=== PATIENT | female | born 1960 | race Caucasian/White ===

== ENCOUNTER 2018-01-14 20:40 | Emergency (ER) | payer OTHER, SELFPAY ==
--- NOTE | 2018-01-14 20:40 | DT_ITS ---
This patient was seen during an EMR downtime January 11, 2018 - January 18, 2018. This patient may have a combination of paper and electronic documentation or all paper documentation. All documentation is viewable within the e-chart portion of [facility] for each patient visit.
== END 2018-01-14 22:30 | disposition home or self-care (01) ==
LOC: ED 01-15 08:34
PROVIDERS: Emergency Provider Emergency Medicine; Family Provider Preventive Medicine Occupational Medicine; PCP Preventive Medicine Occupational Medicine
DX: S61.211A Laceration without foreign body of left index finger without damage to nail, initial encounter (principal); S60.413A Abrasion of left middle finger, initial encounter; W23.0XXA Caught, crushed, jammed, or pinched between moving objects, initial encounter; Y93.9 Activity, unspecified; Y92.9 Unspecified place or not applicable; E11.9 Type 2 diabetes mellitus without complications; I10 Essential (primary) hypertension; J45.909 Unspecified asthma, uncomplicated; Z79.84 Long term (current) use of oral hypoglycemic drugs; Z79.899 Other long term (current) drug therapy
CPT/HCPCS: 12001; 90471; 90715; 99283

== ENCOUNTER 2019-03-18 06:12 | Day surgery (SDC) | payer OTHER, SELFPAY ==
--- NOTE | 2019-03-14 09:39 | NURSING ---
Pt called for PAT. States only change in history was new office visit, [facility]. New EKG done. Will call for records and have anesthesia review.
[2019-03-18 06:36] VITALS: BP 126/64; PULSE 73; RESP 18; TEMP 36.8; O2SAT 97; BMI 37.5
[2019-03-18 07:00] LABS: Bedside Glucose 83 mg/dL (70-110)
[2019-03-18] MEDS: Bupivacaine Mpf 0.5% 30 ML VIAL (08:00)
--- NOTE | 2019-03-18 09:37 | PCM.DC.POD ---
Discharge Diet: No Restrictions Discharge Activity: May Not Drive, May not drive while taking narcotic pain medications. Weight Bearing Status: No weight bearing Keep extremity elevated above heart level: Right Leg Call your doctor if your incision/area has: Continuous Slow Oozing, Sudden Increased Bleeding, Increased Pain/ Swelling, Increased Redness, Foul Smelling Discharge, Swelling at the incision site Call your doctor if you observe: Fever of 101 or Higher, Calf discomfort, Uncontrolled pain Cleanse incision/area with: Keep Dressing Clean & Dry Allergies/Adverse Reactions: Allergies hydrocodone [From Vicodin] Allergy (Verified 02/25/19 13:51) restlessness Medications to take at Discharge Albuterol Aerosols [Ventolin Aerosols] 2.5 mg INHALATION Q6H PRN PRN 02/25/19 Albuterol IH (ProAir) [Proair Hfa (SP)Vent Pts] 1 - 2 puff INHALATION Q6H PRN PRN 02/25/19 [place] Allergy 160 mg PO DAILY 02/25/19 Ascorbic Acid [Vitamin C] 1,000 mg PO DAILY 02/25/19 Calcium Carbonate/Vitamin D3 [Calcium 600 + Vit D Tablet] 1 ea PO DAILY 02/25/19 DiphenhydrAMINE [Benadryl] 25 mg PO QHS 02/25/19 Fluticasone 0.05% [Flonase Nasal [place]] 1 spray NASAL DAILY 02/25/19 Lisinopril [Zestril] 10 mg PO DAILY 02/25/19 Magnesium 250 mg PO DAILY 02/25/19 Metformin HCl [Glucophage] 500 mg PO DAILY 02/25/19 Multivitamin with Minerals [Multiple Vitamin] 1 ea PO DAILY 02/25/19 Viracid 1 cap PO DAILY 02/25/19 traZODone [Desyrel] 100 mg PO QHS 02/25/19 Ibuprofen 400 mg PO PRN PRN 03/14/19 Primary Care Physician: Ayo Rudd DO [Primary Care Provider] - Test Results: Test results from this visit will be discussed in further detail at your follow-up appointment, if applicable. Please Follow Up With: Kiya Catherine DPM When: [facility] week[facility] Call [phone] sooner if questions. Proposed Discharge Date: 03/18/19
[2019-03-18 09:38] VITALS: BP 110/58; BP 126/64; PULSE 79; RESP 14; TEMP 35.9; O2SAT 94
--- NOTE | 2019-03-18 09:41 | PCM.OPRPT ---
Problem List (1) Plantar fasciitis, right Status: Chronic (2) Gastrocnemius equinus of right lower extremity Status: Chronic (3) Right foot pain Status: Chronic Report of Operation Date of Procedure: 03/18/19 Pre-Operative Diagnosis: right plantar fasciitis. right gastrocnemius equinus Post-Operative Diagnosis: right plantar fasciitis. right gastrocnemius equinus Surgery/Procedure Performed:: open right plantar fasciotomy. Right endoscopic gastrocnemius recession Description of Surgical Findings:: Hemostasis: Well-padded pneumatic right thigh tourniquet, 300 mmHg, 53 minutes Materials: 3-0 Vicryl, 4-0 Monocryl, 4-0 nylon Complications: None Specimens: None The patient tolerated the procedure anesthesia well. She was transported to PACU vital signs and vascular status intact to the right lower extremity. She will be transferred home upon continued stability. All postoperative orders are entered electronically. chute boss: none - surgeon: Kiya Catherine DPM. Paperback Machine Operator: Juliane Mullnis PGY2 Type of Anesthesia:: General, Local - Preoperative: 1:1 mixture of 1% lidocaine plain 0.5% Marcaine plain administered in typical right ankle block fashion, 10 cc Intraoperative: 16 cc of 1% lidocaine with epinephrine administered in infiltrative manner to the gastrocnemius recession site as well as the plantar fasciotomy sites Specimen's removed: none Estimated Blood Loss (mL): <150 mL Fluids Replaced: none Description of Procedure: Indications: This 58-year-old female with significant past medical history of arthritis and diabetes mellitus continues to have recalcitrant chronic right heel pain consistent with plantar fasciitis. The onset of her condition dates back to 10/2016. Clinically, her neurovascular status remains intact. She does not have a positive tinel sign to tibial nerve percussion or parasthesias with medial calcaneal nerve percussion. She does have a h/o spinal stenosis with prior surgical intervention and this is noted. She has pain on palpation to the plantar central aspect of the right heel as well as just distal to this site. She has failed conservative care including numerous cortisone injection at an outside facility, stretching program with splint, strengthening, rest, activity modification, immobilization with cam walker, improved shoe gear, and functional orthotics. Her pain is affecting her daily activities in a negative manner. She elects to proceed with surgery at this time. Her x-rays did not demonstrate any acute fractures or abnormal calcaneus trabecular patterns. She does have a small heel spur however this is not hypertrophic or with cortical interruption. An MRI was also obtained with a central plantar fascial partial tear noted with defect. This appears to be chronic. There was no stress fracture of the calcaneus noted. She also has reduced ankle dorsiflexion with the knee extended. Her gait was antalgic. The preoperative indication, planned procedure, possible benefits, risks, complications, and anticipated healing time and management as were discussed in detail with patient. She understands and elects to proceed with surgery at this time. No guarantees were made. She understands risk and complications may include but are not limited to following: pain, swelling, scarring, need for revisional surgery, chronic pain, loss of limb, function or life, blood clots, and allergic reaction. I answered her questions. Informed surgical consent and limb were signed. Preoperative clearance and cardiac clearance as well as her diagnostic data were reviewed in detail. It is noted she is considered low cardiac and surgical risk. Procedure in detail: The patient was transferred to the operating room via cart and placed on the operating table in supine position. Final verification patient, surgery, limb designation was performed via the timeout procedure. Anesthesia was initiated by the anesthesia team. Local anesthesia was administered by the podiatry team. No antibiotics were administered preoperative. The patient was bumped to allow good exposure. A well-padded pneumatic right thigh tourniquet was placed. The right lower extremity was prepped and draped in the usual aseptic manner. Exsanguination with an Esmarch bandage was performed and the tourniquet was inflated at this time. Intraoperative local anesthetic injection was administered as described. Surgery began in the following manner: Attention was first directed to the medial aspect of the gastrocnemius medial border approximately 2 cm distal to the medial gastrocnemius palpable head. A 1 cm linear incision was made through the skin and blunt dissection was performed down to the posterior fascial compartment. Next, a small rent was made and dissection proceeded until the interval between the gastrocnemius aponeurosis and the more superficial fascial layer was identified. A trocar was used to carefully dissect through this layer until this instrument was identified laterally. A stab incision was made in the skin to allow advancement of the cannula. An arthroscope size 4 with a 30 degree camera was entered in this site and the anatomic structures of interest were identified including the gastrocnemius aponeurosis. Any fatty tissue was removed from the area and cleansed from the view with cotton tip applicators and a rasp. The switching stick was used to delineate a safer area. The arthroscopic camera was rotated 180 degrees to check the adjacent fatty and fascial layer in which the venous structures were identified. The sural nerve was not directly visualized. The deep fibers consistent with a gastrocnemius aponeurosis were identified clearly visualized without the nerve apparent for the entire length of this structure. A 90 degree arthroscopic blade was entered to next release the central to medial aspect. Next the arthroscope was entered from the opposite side in which the central to lateral aspect the gastrocnemius aponeurosis was successfully released. The ankle was dorsiflexed and arthroscopic pictures were obtained to confirm adequate release of this entire structure with visualization of the underlying soleus muscle layer. Improved ankle dorsiflexion with the knee extended and flexed was achieved. The arthroscopic equipment was removed from the field and saline irrigation was performed. Deep closure was obtained with Vicryl and the skin was reapproximated with Monocryl utilizing subcuticular technique. Attention was next directed approximately 1.5 cm distal to the plantar weightbearing surface of the medial heel. A horizontal 1.5 cm linear incision was made through the skin remaining parallel to the resting skin tension lines. Next, blunt dissection was performed through the adipose tissue and the plantar fascial band was directly visualized. A 15 blade was utilized to release the plantar fascia band including the medial aspect and the entire central band. The windlass mechanism was re-created and decreased tension was visualized and palpated. Additional tenotomy scissor was used to ensure the medial slips extending into the abductor hallucis muscle belly sheath were thoroughly released as well. This plantar fascial band did appear thick and there were no other abnormal findings. Minimal electrocauterization was utilized to control hemostasis for a superficial vein in this region. The tourniquet was deflated at this time and no pulsatile bleeding was noted. Brisk capillary refill time was noted to all digits of the surgical limb. One Vicryl stitch was applied for deep closure. Next, the skin was reapproximated utilizing 4-0 nylon with horizontal mattress technique. A postoperative dressing consisting of Adaptic soaked in Betadine, gauze, Kerlix and webril was applied to the surgical limb. A well-padded posterior mold with the foot in a neutral position was next applied. After procedure: The patient tolerated the procedure and anesthesia well. She was transported to the PACU with vital signs stable and vascular status intact to surgical lower extremity. She was advised to ice and elevate for pain and inflammation management. She was advised to remain nonweightbearing to surgical lower extremity with assistive devices; she has a walker at home already. She was advised to keep her dressing and splint clean, dry, and intact until [facility] next week with Dr. Catherine. She was advised on safe and proper use of postoperative oral pain medication; a prescription was already provided. All of her postoperative orders were entered electronically. She will be discharged home today. Kiya Catherien DPM, [facility] [place] Grafts/Implants Used: none - Complications none - Admit VTE Documentation VTE Present on Admission: No VTE Mechan Device Prophylaxis: SCD's VTE Pharm Prophylaxis ordered?: No Reason prophylaxis not ordered:: Treatment Not Indicated
[2019-03-18 09:45] VITALS: BP 118/59; BP 126/64; PULSE 74; RESP 14; O2SAT 99
[2019-03-18] MEDS: Ketorolac 30 MG/ML Syringe IV (09:54)
[2019-03-18 10:00] VITALS: BP 112/96; BP 126/64; PULSE 69; RESP 14; TEMP 36.1; O2SAT 94
--- NOTE | 2019-03-18 10:09 | SUR.PHASEI ---
GLUCOSE 85
[2019-03-18 10:16] LABS: Bedside Glucose 87 mg/dL (70-110)
[2019-03-18 10:55] VITALS: BP 126/64; BP 140/63; PULSE 71; RESP 16; TEMP 36.2; O2SAT 99
== END 2019-03-18 11:12 | disposition home or self-care (01) ==
LOC: SDC 06:13 → AC 06:14
PROVIDERS: Family Provider Preventive Medicine Occupational Medicine; PCP Preventive Medicine Occupational Medicine; Referring Provider Podiatrist; Visit Provider Podiatrist
PROC: (CPT 28008; principal; 2019-03-18 07:45)
DX: M72.2 Plantar fascial fibromatosis (principal); M84.374D Stress fracture, right foot, subsequent encounter for fracture with routine healing; E11.9 Type 2 diabetes mellitus without complications; M19.90 Unspecified osteoarthritis, unspecified site; E78.00 Pure hypercholesterolemia, unspecified; I10 Essential (primary) hypertension; J45.909 Unspecified asthma, uncomplicated; Z79.84 Long term (current) use of oral hypoglycemic drugs; Z79.899 Other long term (current) drug therapy
CPT/HCPCS: 27687; 28008; 82962; J7120; J2405

== ENCOUNTER 2021-10-14 09:46 | Outpatient (CLI) | payer OTHER, SELFPAY ==
--- NOTE | 2021-10-14 09:50 | US_ITS ---
EXAM: US RETROPERITONEAL LIMITED, RENAL : 1960 CLINICAL INDICATION: UTI TECHNIQUE: Limited grayscale and color Doppler sonographic evaluation of the retroperitoneum was performed. This report was created using Turn report hopscout technology. COMPARISON: None. FINDINGS: RIGHT KIDNEY: The right kidney measures 9.8 x 5.2 x 4.8 cm. The renal cortex measures 1.3 cm. No hydronephrosis. No shadowing calculus. No perinephric collection is demonstrated. LEFT KIDNEY: The left kidney measures 10.3 x 5.5 x 5.9 cm. The left renal cortex measures 1.3 cm. There is a 1.4 x 1.3 x 1.6 cm slightly lobular anechoic structure in the left kidney compatible with a cyst. BLADDER: The bladder is not well distended. OTHER FINDINGS: There is a 1.5 x 1.5 x 1.0 cm anechoic structure in the mid pole compatible with a cyst. There is a second anechoic structure with a septation that measures 2.0 x 2.2 x 0.8 cm a septated cyst. US/Kidney and Bladder IMPRESSION: Anechoic structures in the left kidney 1 of which is septated the other is slightly lobular which not meet the strict criteria for simple cysts. Further evaluation with CT may be beneficial. No solid masses are seen. There is a simple cyst in the right kidney. No other abnormalities are identified. at 0123 Reported and signed by: Dewey Pacheco MD Electronically Signed: Dewey Pacheco MD at 1:22 EST ,
== END 2021-10-14 23:59 | disposition home or self-care (01) ==
LOC: US 09:49
PROVIDERS: PCP Preventive Medicine Occupational Medicine; Referring Provider Urology; Visit Provider Urology
DX: N39.0 Urinary tract infection, site not specified (principal)
CPT/HCPCS: 76770

== ENCOUNTER 2021-11-01 14:07 | Outpatient (CLI) | payer OTHER, SELFPAY ==
--- NOTE | 2021-11-01 14:12 | RAD_ITS ---
STUDY: AP PELVIS X-RAY OF 1420 HOURS ON 11/01/2021 REASON FOR EXAM: 60-year-old female with pelvic pain. TECHNIQUE: One view of the pelvis was obtained. COMPARISON: None. FINDINGS: There is a non-specific bowel gas pattern. Normal visualized soft tissue structures. Bilateral L4-S1 posterior suspension procedure with vertical support rods and bilateral pedicle screws. There is a spacer in the L4-5 intervertebral disc. There are findings of a laminectomy. Normal bilateral iliac wings, sacroiliac joints and visualized sacrum. Normal visualized bilateral superior and inferior pubic rami. Normal pubic symphysis. Normal ischial tuberosities. Normal visualized right femoral head. Normal right acetabulum. Normal right hip joint. Normal visualized left femoral head. Normal left acetabulum. Normal left hip joint. RAD/Pelvis 1 or 2 Views IMPRESSION: 1. Bilateral L4-S1 posterior suspension procedure with vertical support rods and bilateral pedicle screws. There is a spacer at the L4-5 level. There are findings of laminectomy. 2. No pelvic bone fractures or hip fractures or dislocations. 3. No osseous lytic, sclerotic or mass lesions. 4. Normal sacroiliac joints. 5. Normal surrounding soft tissues. Electronically Signed: Noam Salvador MD at 19:44 EDT ,
[2021-11-01 15:34] LABS: Absolute Lymphocyte Count 1.36 X10^3/uL (0.83-4.51); Absolute Neutrophil Count 5.3 X10^3/uL (2.0-7.7); Basophil# 0.04 X10^3/uL; Basophil% 0.5 % (0-1); Eosinophil# 0.27 X10^3/uL; Eosinophils% 3.6 % (0-5); Hematocrit 37.6 % (37-47); Hemoglobin 12.1 g/dL (12.0-15.0); Lymphocyte # 1.36 X10^3/ul (0.83-4.51); Lymphocyte % 18.4 % (19-41); Mean Corp Hgb Conc 32.2 g/dL (32-36); Mean Corpuscular Hgb 27.6 pg (27.0-32.0); Mean Corpuscular Volume 85.6 fL (81-99); Mean Platelet Vol. 10.4 fl (6.2-12.0); Monocyte# 0.43 X10^3/uL; Monocyte% 5.8 % (0-10); NRBC Flagged by Analyzer 0 % (0-5); Neutrophil # 5.28 X10^3/uL (2.7-7.7); Neutrophil % 71.3 % (47-70); Platelet Count 337 K/mm3 (150-450); RBC Distribution Width CV 14.6 % (11.6-14.6); RBC Distribution Width SD 45.2 fl (35.1-43.9); Red Blood Count 4.39 M/mm3 (4.2-5.4); White Blood Count 7.4 K/mm3 (4.4-11.0)
[2021-11-01 16:30] LABS: Erythrocyte Sedimentation Rate 21 mm/hr (0-30)
[2021-11-01 16:46] LABS: ALB/GLOB Ratio 1.1 RATIO (0.9-2.4); AST(SGOT) 15 U/L (15-37); Alanine Aminotransfer ALT/SGPT 28 U/L (13-56); Albumin, Serum 3.8 g/dL (3.2-5.0); Alkaline Phosphatase 65 U/L (45-117); Anion Gap 6 (5-15); BUN 24 mg/dL (7-18); BUN/Creat Ratio 32.6 RATIO (10-20); Calcium,Total 9.4 mg/dL (8.5-10.1); Chloride 107 mmol/L (98-107); Creatinine, Serum 0.74 mg/dL (0.55-1.02); EST Glomerular Filtration Rate 85 mL/min (>60); Est Glom Filt Rate - Afr Amer 103 mL/min (>60); Globulin 3.5 g/dL (2.2-4.2); Glucose 93 mg/dL (74-106); Potassium 3.9 mmol/L (3.5-5.1); Protein, Total 7.3 g/dL (6.4-8.2); Rheumatoid Factor < 10.0 IU/mL (<15); Sodium Level 141 mmol/L (136-145)
[2021-11-03 16:10] LABS: ANTINUCLEAR ANTIBODIES DIRECT Negative (Negative)
[2021-11-04 09:37] LABS: Hepatitis B Surface Antibody Non-Reactive; Hepatitis B Surface Antigen Non-Reactive (Nonreactive); Hepatitis C Antibody Non-Reactive (Nonreactive)
[2021-11-05 09:05] LABS: CCP IgG Antibodies 7 units (0-19)
== END 2021-11-01 23:59 | disposition home or self-care (01) ==
LOC: MTLAB 14:11
PROVIDERS: PCP Preventive Medicine Occupational Medicine; Referring Provider Internal Medicine Rheumatology; Visit Provider Internal Medicine Rheumatology
DX: M06.4 Inflammatory polyarthropathy (principal); E11.9 Type 2 diabetes mellitus without complications; M18.0 Bilateral primary osteoarthritis of first carpometacarpal joints; M17.0 Bilateral primary osteoarthritis of knee; M47.897 Other spondylosis, lumbosacral region; G25.81 Restless legs syndrome; I10 Essential (primary) hypertension; E78.5 Hyperlipidemia, unspecified; N32.81 Overactive bladder; Z87.440 Personal history of urinary (tract) infections
CPT/HCPCS: 36415; 72170; 80053; 85025; 85652; 86038; 86140; 86200; 86431; 86706; 86803; 87340

== ENCOUNTER → 2022-01-20 | Outpatient (CLI) | payer OTHER, SELFPAY ==
--- NOTE | 2022-01-20 11:54 | US_ITS ---
STUDY: RENAL ULTRASOUND - COMPLETE REASON FOR EXAM: Female, 61 years old. UTI TECHNIQUE: Ultrasound evaluation of the kidneys was performed with real-time and static andrew-scale imaging. COMPARISON: Comparison is made with prior examination dated 10/14/2021. FINDINGS: RIGHT KIDNEY: Normal location of the right kidney, which is normal in size. The right kidney measures 10.3 cm x 5.3 cm x 5.2 cm. There is a normal cortex of the right kidney. The renal cortex measures 1.7 cm. There is no right renal mass or cyst. There are no right renal calculi. There is no right hydronephrosis. DISTAL RIGHT URETER: There is non-visualization of the distal right ureter. There is no demonstrated right ureterovesical junction calculus. There is a visualized right ureteral jet. LEFT KIDNEY: Normal location of the left kidney, which is normal in size. The left kidney measures 10.7 cm x 5.4 cm x 5.6 cm. There is a normal cortex of the left kidney. The renal cortex measures 1.5 cm. There is no left renal mass or cyst. There are no left renal calculi. There is no left hydronephrosis. DISTAL LEFT URETER: There is non-visualization of the distal left ureter. There is no demonstrated left ureterovesical junction calculus. There is a visualized left ureteral jet. BLADDER: The distended urinary bladder has a volume of 119 ml. There is a normal wall thickness of the distended urinary bladder. There is no demonstrated mass within the urinary bladder. There are no demonstrated bladder calculi. US/Kidney and Bladder IMPRESSION: Normal ultrasound of the kidneys and urinary bladder. Electronically Signed: Jesse Wang MD at 15:26 EDT ,
== END | disposition home or self-care (01) ==
LOC: US 11:52
PROVIDERS: PCP Preventive Medicine Occupational Medicine; Referring Provider Urology; Visit Provider Urology
DX: N39.0 Urinary tract infection, site not specified (principal)
CPT/HCPCS: 76770

== ENCOUNTER → 2025-02-08 | Outpatient (CLI) | payer MEDICARE, OTHER, SELFPAY ==
--- NOTE | 2025-02-08 07:58 | MRI_ITS ---
PROCEDURE: LOWER EXT JOINT ONLY (ROUTINE) 02/08/2025 REASON FOR EXAM: SPRAIN OF UNSPECIFIED LIGAMENT OF UNSPECIFIED ANKLE TECHNIQUE: LOWER EXT JOINT ONLY (ROUTINE) Multiplanar and multisequence images were obtained without IV contrast administration. COMPARISON: COMPARISON : None FINDINGS: Study demonstrates normal articulation of the ankle joint. No acute fractures or dislocations. Normal marrow signal. The contours of the talar dome are normal. There is mild distal Achilles tendinopathy without full-thickness tear. There is edema in the pre Achilles fat, with increased fluid in the pre Achilles bursa, with bursitis. Plantar aponeurosis is intact. The lateral, medial and central cords of the plantar fascia are intact. There is mild thickening and attenuation of the medial band of the plantar fascia, with focal edema in the adjacent calcaneal spur and overlying soft tissues, with plantar fasciitis. Evaluation of the peroneal tendons demonstrates no evidence of tendinosis or dislocation. The flexor digitorum longus and tibialis posterior and flexor hallucis longus tendons are intact. The tibialis anterior tendon appears intact. The extensor hallucis longus and digitorum longus tendons show edema and attenuation at the level of the tibiotalar articulation, with soft tissue edema extending into the metatarsal region and overlying soft tissues, without full-thickness tear or retraction. There is laxity demonstrated in the inferior extensor retinaculum. The subtalar joint is intact. Signal in the sinus tarsi is normal. Transverse and cervical ligaments are intact. There is a edema and thickening in the dorsal talonavicular ligament without laxity, grade 2 sprain. Lateral syndesmotic ankle ligaments including the anterior and posterior tibiofibular ligaments are intact. The anterior and posterior talofibular ligaments are intact. The medial ankle ligaments including the deltoid and spring ligaments are intact. There is no joint effusion. MRI/Lower Ext Joint Only (Routine) IMPRESSION: There is edema in the pre Achilles fat, with increased fluid in the pre [place] s bursa, with bursitis. There is mild thickening and attenuation of the medial band of the plantar fasc ia, with focal edema in the adjacent calcaneal spur and overlying soft tissues, with plantar fasciitis. The extensor hallucis longus and digitorum longus tendons show edema and attenu ation at the level of the tibiotalar articulation, with soft tissue edema extending into the metatarsal region and overlying soft tissues, without full-thickness tear or retraction. There is laxity demonstrated in the inferior extensor retinaculum. There is a edema and thickening in the dorsal talonavicular ligament without la xity, grade 2 sprain. Reading [facility]
== END | disposition home or self-care (01) ==
PROVIDERS: PCP Preventive Medicine Occupational Medicine; Referring Provider Podiatrist; Visit Provider Podiatrist
DX: S93.409S Sprain of unspecified ligament of unspecified ankle, sequela (principal)
CPT/HCPCS: 73721